=== PATIENT | female | born 1995 | race American Indian/Alaskan Native ===

== ENCOUNTER 2021-10-26 12:58 | Emergency (ER) | payer MEDICARE ==
--- NOTE | 2021-10-26 13:56 | Emergency Department Report ---
Minor Respiratory - HPI Chief Complaint: Upper Respiratory Infection Stated Complaint: COVID SYMPTOMS Time Seen by Provider: 10/26/21 13:35 Duration: 5 Days Minor Respiratory: Yes Cough, No Rhinorrhea, No Sore Throat Other History: 26-year-old -[place] female who is wheelchair-bound presents to the emergency room stating that she tested positive for COVID on October 19, 2021 and still having symptoms. Patient notes she is not vaccinated for COVID. States is taking NyQuil and Tylenol nothing on the day. States that she was given inhalers help with her nausea. ED Review of Systems ROS: Stated complaint: COVID SYMPTOMS Other details as noted in HPI Comment: All other systems reviewed and negative ED Past Medical Hx - Past Medical History Hx Hypertension: Yes Additional medical history: porteus syndrome Minor Respiratory Exam - Exam General: Vital signs noted. No distress. Alert and acting appropriately. HEENT: Yes Moist Mucous Membranes, No Pharyngeal Erythema, No Pharyngeal Exudates, No Rhinorrhea, No Conjuctival Injection, No Frontal Tenderness, No Maxillary Tenderness Neck: Yes Supple, No Adenopathy Lungs: Yes Good Air Exchange, No Wheezes, No Ronchi, No Stridor, No Cough, No Labored Respirations, No Retractions, No Use of Accessory Muscles, No Other Abnormal Lung Sounds Heart: Yes Regular, No Murmur Abdomen: Yes Normal Bowel Sounds, No Tenderness, No Peritoneal Signs Neurologic: Alert and oriented, no deficits. Musculoskeletal: Unremarkable. ED Course Vital Signs 10/26/21 10/26/21 13:16 13:18 Temperature 98.6 F Pulse Rate 78 Respiratory 16 Rate Blood Pressure 128/73 O2 Sat by Pulse 93 Oximetry ED Medical Decision Making - Radiology Data Radiology results: report reviewed [facility] [address] [place] [address] XRay Report Signed Patient: DAVON VALE MR#: [id number] 0 : 1995 Acct:[id number] Age/Sex: 26 / F ADM Date: 10/26/21 Loc: ED Attending Dr: Ordering Physician: MARIA D RUIZ Date of Service: 10/26/21 Procedure(s): XR chest routine 2V Accession Number(s): [id number] cc: MARIA D RUIZ Fluoro Time In Minutes: CHEST 2 VIEWS INDICATION: cough, covid. COMPARISON: none FINDINGS: Support devices: None. Heart: Within normal limits. Lungs/pleura: No acute air space or interstitial disease. No pneumothorax. Additional findings: None. IMPRESSION: No acute findings. Signer Name: Mark Hurt Jr, MD Signed: 10/26/2021 2:30 PM Workstation Name: [id number] Transcribed By: TTR Dictated By: MARK HURT JR, MD Electronically Authenticated By: MARK HURT JR, MD Signed Date/Time: 10/26/211429 DD/ 29 TD/TT: Print - Medical Decision Making 26-year-old -[place] female who is wheelchair-bound presents to the emergency room stating that she tested positive for COVID on October 19, 2021 and still having symptoms. Patient notes she is not vaccinated for COVID. States is taking NyQuil and Tylenol nothing on the day. States that she was given inhalers help with her nausea. Chest x-ray was ordered Critical care attestation.: If time is entered above; I have spent that time in minutes in the direct care of this critically ill patient, excluding procedure time. ED Disposition Clinical Impression: COVID, Viral infection Disposition: HOME / SELF CARE / HOMELESS Is pt being admited?: No Does the pt Need Aspirin: No Condition: Stable Instructions: COVID-19 Frequently Asked Questions, COVID-19: How to Protect Yourself and Others - CDC, Prevent the Spread of COVID-19 if You Are Sick - [facility] Additional Instructions: Chest x-ray is negative for any acute pneumonia or abnormalities. Recommend continue [id number] supplements such as Robitussin Mucinex Tylenol ibuprofen increase your water intake. Follow-up with your primary care provider . Continue with your inhaler use and your nausea medicine as needed. Referrals: PRIMARY CARE, [Primary Care Provider] - 3-5 Days [facility] - [facility]-5 Days Time of Disposition: 14:51
--- NOTE | 2021-10-26 14:35 | XRay Report ---
CHEST 2 VIEWS INDICATION: cough, covid. COMPARISON: none FINDINGS: Support devices: None. Heart: Within normal limits. Lungs/pleura: No acute air space or interstitial disease. No pneumothorax. Additional findings: None. IMPRESSION: No acute findings. Signer Name: Robin Hurt Jr, MD Signed: 10/26/2021 2:30 PM Workstation Name: [id number]
[2021-10-26 15:06] VITALS: BP 108/73
== END 2021-10-26 15:06 | disposition home or self-care (01) ==
LOC: ED 12:58
DX: U07.1 COVID-19 (principal); B34.9 Viral infection, unspecified; I10 Essential (primary) hypertension
CPT/HCPCS: 71046; 99283